=== PATIENT | male | born 2005 ===

== ENCOUNTER 2023-07-22 14:28 | Outpatient (CLI) | payer BC, SELFPAY ==
--- NOTE | 2023-07-22 15:10 | ECHO_ITS ---
Patient Info Name: Wyatt Addison Age: 17 years : 2005 Gender: Male Ht: 74 in Wt: 195 lbs BSA: 2.15 m2 HR: 51 bpm BP: 122 / 71 mmHg Heart Rhythm: Bradycardia Technical Quality: Good Exam Date: 07/22/2023 3:15 PM Exam Location: Echo Lab Patient Status: Outpatient Admit Date: 07/22/2023 Staff Ordering Physician: Edouard Robison DO Life Sciences Manager: Sandee Perez RDCS Attending Provider: Edouard Robison DO Referring Physician: Ricki ZAPATA; Exam Type: CA echo doppler color flow Study Info Indications - svt Complete two-dimensional, color flow and Doppler transthoracic echocardiogram is performed. Summary 1. Complete two-dimensional, color flow and Doppler transthoracic echocardiogram is performed. 2. Left ventricular chamber dimension is normal. 3. Left ventricular systolic function is normal, estimated at 60-65%. 4. The left ventricular diastolic function is normal. 5. E/e' 5 is not elevated. 6. Left atrial chamber dimension is mildly enlarged. 7. There is trace tricuspid valve regurgitation. 8. No pulmonary hypertension, estimated pulmonary arterial systolic pressure is 28 mmHg. 9. There is trace pulmonic regurgitation. Left Ventricle E/e' 5 is not elevated. Left ventricular chamber dimension is normal. Left ventricular systolic function is normal, estimated at 60-65%. The left ventricular diastolic function is normal. Right Ventricle Right ventricular systolic function is normal and with normal TAPSE 2.2 cm. Right ventricular chamber dimension is normal. Left Atria Left atrial chamber dimension is mildly enlarged. Right Atria Right atrial chamber dimension is normal. Aortic Valve The aortic valve is trileaflet. There is no aortic valve stenosis. There is no aortic valve regurgitation. Pulmonic Valve There is trace pulmonic regurgitation. Mitral Valve There is no mitral valve stenosis. There is no mitral valve regurgitation. Tricuspid Valve There is trace tricuspid valve regurgitation. No pulmonary hypertension, estimated pulmonary arterial systolic pressure is 28 mmHg. Pericardium/Pleural There is no pericardial effusion. Inferior Vena Cava Normal inferior vena cava with >50% collapse upon inspiration consistent with normal right atrial pressure, 5 mmHg. Aorta The aortic root size at the sinus of Valsalva is normal. Left Ventricular Outflow Tract Name Value Normal LVOT 2D LVOT Diameter 2.1 cm LVOT Doppler LVOT Peak Gradient 1 mmHg LVOT Mean Gradient 1 mmHg LVOT VTI 13 cm LVOT VTI/AV VTI Ratio 0.5 LVOT Stroke Volume 47 ml LVOT CO 2.0 l/min LVOT CI 0.9 l/min/m2 Pulmonic Valve Name Value Normal RVOT Doppler RVOT Peak Gradient 2 mmHg PV Doppler
== END 2023-07-22 14:29 | disposition home or self-care (01) ==
LOC: ANHCARD 14:32
PROVIDERS: PCP Nurse Practitioner; Visit Provider Internal Medicine Cardiovascular Disease
DX: I47.19 Other supraventricular tachycardia (principal)
CPT/HCPCS: 93306